=== PATIENT | male | born 1955 | race Caucasian/White ===

== ENCOUNTER 2019-05-30 09:31 | Day surgery (SDC) | payer MEDICARE, BC ==
[~2019-05-30] VITALS: Ht 177.8 cm; Wt 97.8 kg
[2019-05-30] MEDS ORDERED: LISINOPRIL/HCTZ PO (10:25)
[2019-05-30] MEDS ORDERED: Terazosin HCl10 MG PO (10:25)
[2019-05-30] MEDS ORDERED: Aspirin EC81 MG PO (10:26)
[2019-05-30] MEDS ORDERED: Lipitor20 MG PO (10:26)
[2019-05-30] MEDS ORDERED: DICL75ER PO (10:26)
== END 2019-05-30 13:09 | disposition home or self-care (01) ==
LOC: ORSCSDS 09:31
PROVIDERS: Podiatrist Foot & Ankle Surgery
PROC: 0L8P0ZZ Division of Left Lower Leg Tendon, Open Approach (ICD-10-PCS; principal; 2019-05-30 11:15)
PROC: 0QBM0ZZ Excision of Left Tarsal, Open Approach (ICD-10-PCS; principal; 2019-05-30 11:15)
DX: M24.572 Contracture, left ankle (principal); M65.269 Calcific tendinitis, unspecified lower leg; I10 Essential (primary) hypertension; Z87.891 Personal history of nicotine dependence; G62.9 Polyneuropathy, unspecified; Z79.899 Other long term (current) drug therapy; Z79.82 Long term (current) use of aspirin
CPT/HCPCS: C1713; J0690; J2250; J2704; J2710; J3010; J7120

== ENCOUNTER 2019-05-30 14:07 | Emergency (ER) | payer MEDICARE, BC ==
[~2019-05-30] VITALS: Ht 177.8 cm; Wt 97.5 kg
[~2019-05-30 14:07] MED LIST: Aspirin EC81 MG PO; DICL75ER PO; LISINOPRIL/HCTZ PO; Lipitor20 MG PO; Terazosin HCl10 MG PO
[2019-05-30 14:38] LABS: BASOPHILS ABSOLUTE AUTO 0.02 K/mm3 (0.00-0.23); BASOPHILS PERCENT AUTO 0 % (0-2); EOSINOPHILS ABSOLUTE AUTO 0.05 K/mm3 (0.00-0.68); EOSINOPHILS PERCENT AUTO 1 % (0-6); Hematocrit 43.1 % (37.0-53.0); Hemoglobin 14.7 g/dL (13.5-17.5); IMMATURE GRAN ABSOLUTE AUTO 0.05 K/mm3 (0.00-0.10); IMMATURE GRAN PERCENT AUTO 1 % (0-1); LYMPHOCYTES ABSOLUTE AUTO 0.74 K/mm3 (0.84-5.20); LYMPHOCYTES PERCENT AUTO 14 % (21-46); MONOCYTES ABSOLUTE AUTO 0.15 K/mm3 (0.16-1.47); MONOCYTES PERCENT AUTO 3 % (4-13); Mean Corpuscular HGB Conc 34.1 g/dL (31.5-36.5); Mean Corpuscular Volume 94 fL (80-100); Mean Platelet Volume 9.7 fL (9.1-12.4); NEUTROPHILS ABSOLUTE AUTO 4.23 K/mm3 (1.96-9.15); NEUTROPHILS PERCENT AUTO 81 % (41-73); Platelet Count 202 K/mm3 (150-400); RDW Coefficient Variation 13.2 % (11.7-14.2); RDW Standard Deviation 45.2 fL (35.1-46.3); White Blood Cell Count 5.24 K/mm3 (4.00-11.30)
[2019-05-30 14:56] LABS: International Normalized Ratio 0.95; Prothrombin Time Results 10.1 Sec (9.7-11.5)
[2019-05-30 15:03] LABS: Ethanol (Alcohol), Blood, Med <3 mg/dL
[2019-05-30 15:04] LABS: Alanine Aminotransfer (ALT/SGP 42 U/L (12-78); Albumin/Globulin Ratio 1.2 (0.8-1.8); Alk Phos 68 U/L (50-136); Anion Gap 7 mmol/L (6-16); Aspartate Aminotrans (AST/SGOT 21 U/L (12-37); Bilirubin, Total 0.9 mg/dL (0.1-1.0); Blood Urea Nitrogen 20 mg/dL (8-24); CO2, Blood 24 mmol/L (21-32); Calcium, Blood 8.6 mg/dL (8.5-10.1); Chloride, Blood 107 mmol/L (98-108); Globulin, Blood 3.3 g/dL (2.2-4.0); Glucose, Blood 118 mg/dL (70-99); Sodium, Blood 138 mmol/L (136-145); Total Protein, Blood 7.3 g/dL (6.4-8.2)
[2019-05-30 16:13] LABS: Bun/Creatinine Ratio 26.7 (12.0-20.0); Creatinine, Blood 0.75 mg/dL (0.60-1.20); Glomerular Filtration Rate >60 (60-)
== END 2019-05-30 16:20 | disposition short-term general hospital (02) ==
LOC: ER 14:07
PROVIDERS: Emergency Medicine
DX: S06.0X0A Concussion without loss of consciousness, initial encounter (principal); S02.19XA Other fracture of base of skull, initial encounter for closed fracture; S02.119A Unspecified fracture of occiput, initial encounter for closed fracture; W01.198A Fall on same level from slipping, tripping and stumbling with subsequent striking against other object, initial encounter; Z88.0 Allergy status to penicillin; Z88.5 Allergy status to narcotic agent; Z79.899 Other long term (current) drug therapy; Z79.82 Long term (current) use of aspirin; I10 Essential (primary) hypertension; Z87.891 Personal history of nicotine dependence
CPT/HCPCS: 36415; 51702; 70450; 71045; 72125; 80053; 84484; 85025; 85610; 93005; 93010; 96374-59; 96375-59; 96376-59; 99285-25; G0480; J1170; J2405

== ENCOUNTER 2020-02-02 13:57 | Inpatient (IN) | payer MEDICARE, BC ==
[~2020-02-02] VITALS: Ht 177.8 cm; Wt 99.8 kg
--- NOTE | 2020-02-02 14:15 | NUR ---
DIRECT ADMIT TO FLOOR. PT DENIES PAIN AT THIS TIME. AMBULATES INDEPENDENTLY TO BED. DR ROBIN NOTIFIED OF PTS ARRIVAL TO UNIT
[2020-02-02 15:01] LABS: BASOPHILS ABSOLUTE AUTO 0.02 K/mm3 (0.00-0.23); BASOPHILS PERCENT AUTO 0 % (0-2); EOSINOPHILS ABSOLUTE AUTO 0.05 K/mm3 (0.00-0.68); EOSINOPHILS PERCENT AUTO 0 % (0-6); Hematocrit 39.8 % (37.0-53.0); Hemoglobin 13.3 g/dL (13.5-17.5); IMMATURE GRAN ABSOLUTE AUTO 0.09 K/mm3 (0.00-0.10); IMMATURE GRAN PERCENT AUTO 1 % (0-1); LYMPHOCYTES ABSOLUTE AUTO 0.92 K/mm3 (0.84-5.20); LYMPHOCYTES PERCENT AUTO 6 % (21-46); MONOCYTES ABSOLUTE AUTO 0.54 K/mm3 (0.16-1.47); MONOCYTES PERCENT AUTO 4 % (4-13); Mean Corpuscular HGB 30.8 pg (26.0-34.0); Mean Corpuscular HGB Conc 33.4 g/dL (31.5-36.5); Mean Corpuscular Volume 92 fL (80-100); Mean Platelet Volume 9.2 fL (9.1-12.4); NEUTROPHILS ABSOLUTE AUTO 12.94 K/mm3 (1.96-9.15); NEUTROPHILS PERCENT AUTO 89 % (41-73); Platelet Count 231 K/mm3 (150-400); RDW Coefficient Variation 13.9 % (11.7-14.2); RDW Standard Deviation 47.4 fL (35.1-46.3); Red Blood Cell Count 4.32 M/mm3 (4.30-5.90); White Blood Cell Count 14.56 K/mm3 (4.00-11.30)
[2020-02-02 15:14] LABS: Alanine Aminotransfer (ALT/SGP 31 U/L (12-78); Albumin, Blood 3.6 g/dL (3.4-5.0); Albumin/Globulin Ratio 1.1 (0.8-1.8); Alk Phos 64 U/L (50-136); Anion Gap 9 mmol/L (6-16); Aspartate Aminotrans (AST/SGOT 16 U/L (12-37); Bilirubin, Total 2.4 mg/dL (0.1-1.0); Blood Urea Nitrogen 22 mg/dL (8-24); Bun/Creatinine Ratio 27.6 (12.0-20.0); CO2, Blood 24 mmol/L (21-32); Calcium, Blood 8.3 mg/dL (8.5-10.1); Chloride, Blood 104 mmol/L (98-108); Globulin, Blood 3.2 g/dL (2.2-4.0); Glomerular Filtration Rate >60 (60-); Glucose, Blood 97 mg/dL (70-99); Potassium, Blood 3.6 mmol/L (3.5-5.5); Sodium, Blood 137 mmol/L (136-145); Total Protein, Blood 6.8 g/dL (6.4-8.2)
--- NOTE | 2020-02-03 04:37 | NUR ---
SHIFT SUMMARY: PT NPO THROUGHOUT SHIFT. FLUIDS AND ABX INFUSING PER EMAR. DENIES N/V. PT C/O PAIN IN LOWER ABD ONCE RATING IT 10/10 ON PAIN SCALE. MEDICATED WITH 25MCG OF FENTANYL WHICH WAS EFFECTIVE. PT INDEPENDENT IN ROOM. AMBULATED ONCE IN HALLWAY. VOIDING WELL. VS WNL.
[2020-02-03 04:45] LABS: BASOPHILS ABSOLUTE AUTO 0.02 K/mm3 (0.00-0.23); BASOPHILS PERCENT AUTO 0 % (0-2); EOSINOPHILS ABSOLUTE AUTO 0.14 K/mm3 (0.00-0.68); EOSINOPHILS PERCENT AUTO 2 % (0-6); Hematocrit 39.3 % (37.0-53.0); Hemoglobin 12.8 g/dL (13.5-17.5); IMMATURE GRAN ABSOLUTE AUTO 0.04 K/mm3 (0.00-0.10); IMMATURE GRAN PERCENT AUTO 0 % (0-1); LYMPHOCYTES ABSOLUTE AUTO 0.68 K/mm3 (0.84-5.20); LYMPHOCYTES PERCENT AUTO 7 % (21-46); MONOCYTES ABSOLUTE AUTO 0.32 K/mm3 (0.16-1.47); MONOCYTES PERCENT AUTO 3 % (4-13); Mean Corpuscular HGB 30.3 pg (26.0-34.0); Mean Corpuscular HGB Conc 32.6 g/dL (31.5-36.5); Mean Corpuscular Volume 93 fL (80-100); Mean Platelet Volume 9.4 fL (9.1-12.4); NEUTROPHILS ABSOLUTE AUTO 8.43 K/mm3 (1.96-9.15); NEUTROPHILS PERCENT AUTO 88 % (41-73); Platelet Count 215 K/mm3 (150-400); RDW Coefficient Variation 14.1 % (11.7-14.2); Red Blood Cell Count 4.22 M/mm3 (4.30-5.90); White Blood Cell Count 9.63 K/mm3 (4.00-11.30)
[2020-02-03 05:06] LABS: Anion Gap 7 mmol/L (6-16); Blood Urea Nitrogen 16 mg/dL (8-24); Bun/Creatinine Ratio 18.9 (12.0-20.0); CO2, Blood 26 mmol/L (21-32); Calcium, Blood 8.2 mg/dL (8.5-10.1); Chloride, Blood 106 mmol/L (98-108); Creatinine, Blood 0.85 mg/dL (0.60-1.20); Glomerular Filtration Rate >60 (60-); Glucose, Blood 128 mg/dL (70-99); Potassium, Blood 3.8 mmol/L (3.5-5.5); Sodium, Blood 139 mmol/L (136-145)
--- NOTE | 2020-02-03 19:48 | NUR ---
SHIFT SUMMARY PT HAS DONE WELL TODAY. TRAMADOL HELPED SIGNIFICANTLY WITH LOWER ABD PAIN. NO GAS OR BMS.
--- NOTE | 2020-02-04 06:48 | NUR ---
SHIFT SUMMARY PT A/OX4 WITH VSS AND IS IND IN ROOM. PT REPORTS "FEELING BETTER TONIGHT." IS TOLERATING CL, DENIES N/V OR PAIN. DENIED NEED FOR PAIN MEDICATION T/O SHIFT. REFUSED ANTICOAGULATION MEDICATION, DESPITE EDUCATION. ABLE TO VERBALIZE RISKS AND UNDERSTANDING OF EDUCATION. ABX AND IVF INFUSED PER ORDERS. APPEARS TO HAVE SLEPT T/O MOST OF SHIFT. IS CURRENTLY RESTING IN BED WITH CALL LIGHT IN REACH. WILL CONT TO MONITOR AND GIVE REPORT TO ONCOMING RN.
[2020-02-04 10:14] LABS: BASOPHILS ABSOLUTE AUTO 0.02 K/mm3 (0.00-0.23); BASOPHILS PERCENT AUTO 0 % (0-2); EOSINOPHILS ABSOLUTE AUTO 0.16 K/mm3 (0.00-0.68); EOSINOPHILS PERCENT AUTO 2 % (0-6); Hemoglobin 13.1 g/dL (13.5-17.5); IMMATURE GRAN ABSOLUTE AUTO 0.03 K/mm3 (0.00-0.10); IMMATURE GRAN PERCENT AUTO 0 % (0-1); LYMPHOCYTES ABSOLUTE AUTO 0.67 K/mm3 (0.84-5.20); LYMPHOCYTES PERCENT AUTO 8 % (21-46); MONOCYTES ABSOLUTE AUTO 0.37 K/mm3 (0.16-1.47); MONOCYTES PERCENT AUTO 4 % (4-13); Mean Corpuscular HGB 30.9 pg (26.0-34.0); Mean Corpuscular HGB Conc 32.8 g/dL (31.5-36.5); Mean Corpuscular Volume 94 fL (80-100); NEUTROPHILS ABSOLUTE AUTO 7.34 K/mm3 (1.96-9.15); NEUTROPHILS PERCENT AUTO 86 % (41-73); Platelet Count 223 K/mm3 (150-400); RDW Coefficient Variation 13.9 % (11.7-14.2); RDW Standard Deviation 48.6 fL (35.1-46.3); Red Blood Cell Count 4.24 M/mm3 (4.30-5.90); White Blood Cell Count 8.59 K/mm3 (4.00-11.30)
--- NOTE | 2020-02-04 17:25 | NUR ---
summary PT REPORTS HEADACHE RESOLVED AFTER TYLENOL. PT REPORTS PERIODS OF SHARP CRAMPING LOWER ABD PAIN. PT HAS DECLINED PAIN MEDS. JOCELIN CLEAR LIQIDS WITHOUT NAUSEA
[2020-02-05 04:28] LABS: BASOPHILS ABSOLUTE AUTO 0.02 K/mm3 (0.00-0.23); BASOPHILS PERCENT AUTO 0 % (0-2); EOSINOPHILS PERCENT AUTO 2 % (0-6); Hematocrit 40.5 % (37.0-53.0); Hemoglobin 13.3 g/dL (13.5-17.5); IMMATURE GRAN ABSOLUTE AUTO 0.05 K/mm3 (0.00-0.10); IMMATURE GRAN PERCENT AUTO 1 % (0-1); LYMPHOCYTES ABSOLUTE AUTO 0.91 K/mm3 (0.84-5.20); LYMPHOCYTES PERCENT AUTO 10 % (21-46); MONOCYTES ABSOLUTE AUTO 0.66 K/mm3 (0.16-1.47); MONOCYTES PERCENT AUTO 8 % (4-13); Mean Corpuscular HGB 30.2 pg (26.0-34.0); Mean Corpuscular HGB Conc 32.8 g/dL (31.5-36.5); Mean Corpuscular Volume 92 fL (80-100); Mean Platelet Volume 9.2 fL (9.1-12.4); NEUTROPHILS ABSOLUTE AUTO 6.89 K/mm3 (1.96-9.15); NEUTROPHILS PERCENT AUTO 79 % (41-73); Platelet Count 257 K/mm3 (150-400); RDW Coefficient Variation 13.8 % (11.7-14.2); RDW Standard Deviation 46.7 fL (35.1-46.3); Red Blood Cell Count 4.41 M/mm3 (4.30-5.90); White Blood Cell Count 8.73 K/mm3 (4.00-11.30)
--- NOTE | 2020-02-05 04:30 | NUR ---
SHIFT SUMMARY AA0X4, VSS. PT IND IN ROOM UP FREQUENTLY TO URINATE DURING SHIFT. REPORTS PASSING GAS AND HAVING SMALL AMOUNT LOOSE STOOL. NO C/O PAIN, DENIED NEEDS DURING SHIFT. PT HAS BEEN RESTING IN BED FOR MOST OF SHIFT. TOLERATING CLEAR LIQUID DIET. ABX INFUSING DURING SHIFT.
--- NOTE | 2020-02-06 06:35 | NUR ---
PT VSS, PT CONT TO REP PAIN IN MID LOWER ABD, REP PAIN IMPROVING/LESS SEVERE. MED W/TRAMADOL W/REP RELIEF. PT JOCELIN CLEAR LIQ PO, NO N/V. PT VOIDING URINE W/O DIFFICULTY, REP SMALL LOOSE BM. IVF AND ABX CONT PER ORDERS. PT UP INDEP IN ROOM, IS USING CALL LIGHT FOR ASSISTANCE, WILL CONT TO MONITOR UNTIL REP GIVEN TO ONCOMING RN.
[2020-02-06] MEDS ORDERED: TRAM50 PO (13:27)
[2020-02-06] MEDS ORDERED: METR500 PO (13:31)
[2020-02-06] MEDS ORDERED: CIPR500 PO (13:31)
--- NOTE | 2020-02-06 15:28 | NUR ---
DC'D HOME, DC INSTRUCTIONS GIVEN, VERBALIZED UNDERSTANDING.
== END 2020-02-06 15:29 | disposition home or self-care (01) | DRG 392 ==
LOC: SURS 13:57
PROVIDERS: Internal Medicine; Surgery; ADMIT Family Medicine
DX: K57.20 Diverticulitis of large intestine with perforation and abscess without bleeding (principal); I10 Essential (primary) hypertension; E78.5 Hyperlipidemia, unspecified; M19.90 Unspecified osteoarthritis, unspecified site; N40.0 Benign prostatic hyperplasia without lower urinary tract symptoms; G25.81 Restless legs syndrome; Z87.891 Personal history of nicotine dependence; Z88.5 Allergy status to narcotic agent; Z88.0 Allergy status to penicillin; Z79.82 Long term (current) use of aspirin
CPT/HCPCS: 36415; 74018; 80048; 80053; 85025; A9270; J0744; J1644; J3010

== ENCOUNTER → 2020-02-02 | Outpatient (CLI) | payer MEDICARE, BC ==
[~2020-02-02] MED LIST changes: +CENTRUM ADULTS1 EAC1 PO; +HYDR1TAB94 PO; +Prinivil10 MG PO
[2020-02-02 12:25] LABS: Bacteria Not Seen /hpf; Mucus Light (0-Heavy); Red Blood Cells, Urine 0-2 /hpf (0-2); Squamous Epithelial Cells Rare /hpf (Few)
== END | disposition home or self-care (01) ==
LOC: LAB SHORT 11:35 → LAB EV 11:35
PROVIDERS: Physician Assistant
DX: R30.9 Painful micturition, unspecified (principal)
CPT/HCPCS: 81015

== ENCOUNTER 2020-08-30 09:30 | Day surgery (SDC) | payer MEDICARE, BC ==
[~2020-08-30] VITALS: Ht 172.7 cm; Wt 99.6 kg
[~2020-08-30 09:30] MED LIST changes: +ASPI81CH PO; +CIPR500 PO; +DICLOFENAC35 MG PO; +GABA300 PO; +Lisinopril-Hct1 EAC4 PO; +METR500 PO; +TRAM50 PO
--- NOTE | 2020-08-30 10:26 | NUR ---
Ambulatory in Day Surgery History, Chart, Medications and Allergies reviewed before start of procedure.Patient confirms NPO status and agrees with scheduled surgery. Patient reports completing Chlorhexadine shower X5 DAYS AND 5 DAYS OF NASAL OINTMENT prior to admission to hospital.Lungs clear T/O to Auscultation.
--- NOTE | 2020-08-30 10:28 | NUR ---
OXYCONTIN ORDER ON DR. CORCORAN PRE OP ORDER SHEET HELD DUE TO PT REFUSAL FOR ALLERGY/ HX OF ITCHING/BURNING FEELING THROUGHOUT BODY. DR. CORCORAN NOTIFIED
--- NOTE | 2020-08-30 18:02 | NUR ---
SHIFT SUMMARY R TAMERA POD0, A/O X4, VSS, ARRIVED TO UNIT @ 1558, TOLERATING PO, NO POST OP VOID AT THIS TIME, PAIN WELL MANAGED (SEE EMAR), DRESSING CDI, POLAR PACK IN PLACE, ORIENTED TO ROOM/CALL LIGHT. CALL LIGHT IN REACH, WILL CONTINUE TO MONITOR AND REPORT TO ONCOMING NOC RN.
[2020-08-31 03:50] LABS: BASOPHILS ABSOLUTE AUTO 0.01 K/mm3 (0.00-0.23); BASOPHILS PERCENT AUTO 0 % (0-2); EOSINOPHILS PERCENT AUTO 0 % (0-6); Hematocrit 37.1 % (37.0-53.0); Hemoglobin 12.2 g/dL (13.5-17.5); IMMATURE GRAN ABSOLUTE AUTO 0.06 K/mm3 (0.00-0.10); IMMATURE GRAN PERCENT AUTO 1 % (0-1); LYMPHOCYTES ABSOLUTE AUTO 0.57 K/mm3 (0.84-5.20); LYMPHOCYTES PERCENT AUTO 4 % (21-46); MONOCYTES ABSOLUTE AUTO 0.65 K/mm3 (0.16-1.47); MONOCYTES PERCENT AUTO 5 % (4-13); Mean Corpuscular HGB 30.3 pg (26.0-34.0); Mean Corpuscular HGB Conc 32.9 g/dL (31.5-36.5); Mean Corpuscular Volume 92 fL (80-100); Mean Platelet Volume 9.5 fL (9.1-12.4); NEUTROPHILS ABSOLUTE AUTO 11.65 K/mm3 (1.96-9.15); NEUTROPHILS PERCENT AUTO 90 % (41-73); Platelet Count 193 K/mm3 (150-400); RDW Coefficient Variation 13.2 % (11.7-14.2); RDW Standard Deviation 45.6 fL (35.1-46.3); Red Blood Cell Count 4.03 M/mm3 (4.30-5.90); White Blood Cell Count 12.94 K/mm3 (4.00-11.30)
[2020-08-31 04:10] LABS: Anion Gap 5 mmol/L (6-16); Blood Urea Nitrogen 21 mg/dL (8-24); Bun/Creatinine Ratio 28.8 (12.0-20.0); CO2, Blood 26 mmol/L (21-32); Calcium, Blood 8.5 mg/dL (8.5-10.1); Chloride, Blood 108 mmol/L (98-108); Creatinine, Blood 0.73 mg/dL (0.60-1.20); Glomerular Filtration Rate >60 (60-); Glucose, Blood 118 mg/dL (70-99); Magnesium, Blood 1.9 mg/dL (1.6-2.4); Potassium, Blood 4.2 mmol/L (3.5-5.5); Sodium, Blood 139 mmol/L (136-145)
--- NOTE | 2020-08-31 04:40 | NUR ---
SHIFT SUMMARY: PT POD#1 FOR A RT TAMERA. AQUACEL DRESSING C/D/I WITH POLAR PACK IN PLACE. PAIN BEING MANAGED WITH TORADOL AND TYLENOL PER EMAR. PT RATING PAIN 1/10 ON PAIN SCALE. PT ABLE TO AMBULATE TO BATHROOM WITH ONE MINIMAL ASSIST. VOIDING. JOCELIN PO AND DENIES N/V. ABX COMPLETE. PLAN FOR PHYSICAL THERAPY TODAY AND POSSIBLE DISCHARGE HOME.
[2020-08-31] MEDS ORDERED: OXYC5 PO (11:05)
--- NOTE | 2020-08-31 11:35 | NUR ---
DISCHARGE NOTE PT AMBULATING, VOIDING, TOLERATING PO, PASSING FLATUS, PAIN WELL CONTROLLED (SEE EMAR), POST PROCEDURAL EDUCATION AND CARE DISCUSSED W/ PT AND FAMILY, PRESCRIPTIONS GIVEN TO PT, POLAR PACK AND 2 AQUACELLS GIVEN TO PATIENT, DISCUSSED FOLLOW UP APPOINTMENTS W/ PT AND ENCOURAGED TO CONFIRM W/ DR. PT DEPARTED VIA WC W/ ALL PERSONAL POSSESSIONS.
== END 2020-08-31 11:39 | disposition home or self-care (01) ==
LOC: ORSCMMR 09:30 → ORD 11:15 → ORSCMMR 11:15 → SURS 16:06 → ORSCMMR 08-31 11:39 → SURS 08-31 11:39
PROVIDERS: Orthopaedic Surgery
PROC: 0SR90JA Replacement of Right Hip Joint with Synthetic Substitute, Uncemented, Open Approach (ICD-10-PCS; principal; 2020-08-30 11:15)
DX: M16.11 Unilateral primary osteoarthritis, right hip (principal); I10 Essential (primary) hypertension; E78.5 Hyperlipidemia, unspecified; Z87.891 Personal history of nicotine dependence; Z79.899 Other long term (current) drug therapy; E66.9 Obesity, unspecified; Z68.33 Body mass index [BMI] 33.0-33.9, adult; Z79.82 Long term (current) use of aspirin
CPT/HCPCS: 36415; 72170; 80048; 83735; 85025; 88300; 97110; 97116; 97162; A9270; A9270-GY; C1776; J0171; J0690; J0735; J1100; J1885; J2250; J2370; J2405; J2704; J2795; J3010; J7120; Q0163

== ENCOUNTER 2021-09-07 09:50 | Day surgery (SDC) | payer MEDICARE, BC ==
[~2021-09-07] VITALS: Ht 172.7 cm; Wt 93.4 kg
[~2021-09-07 09:50] MED LIST changes: +OXYC5 PO
--- NOTE | 2021-09-07 11:42 | NUR ---
09/07/21 1142 Kamar Vera 1 MG EPI ADDED TO THE FIRST BAG OF LR PER ORDER FOR IRRIGATION.
--- NOTE | 2021-09-07 12:28 | NUR ---
09/07/21 1228 MARYBETH MULLINS placed on 15L FACE TENT ON ADMISSION. PT VERY SLEEPY, NOT TAKING DEEP BREATHS
== END 2021-09-07 13:20 | disposition home or self-care (01) ==
LOC: ORSCSDS 09:50
PROVIDERS: Orthopaedic Surgery
PROC: 0SBD4ZZ Excision of Left Knee Joint, Percutaneous Endoscopic Approach (ICD-10-PCS; principal; 2021-09-07 11:00)
DX: S83.242A Other tear of medial meniscus, current injury, left knee, initial encounter (principal); I10 Essential (primary) hypertension; E78.00 Pure hypercholesterolemia, unspecified; Z79.82 Long term (current) use of aspirin; Z79.899 Other long term (current) drug therapy; Z87.891 Personal history of nicotine dependence
CPT/HCPCS: J0171; J0690; J1100; J1885; J2250; J2405; J2704; J3010; J7120

== ENCOUNTER 2022-04-21 06:14 | Day surgery (SDC) | payer MEDICARE, BC ==
[~2022-04-21] VITALS: Ht 175.3 cm; Wt 95.3 kg
[2022-04-21] MEDS ORDERED: LOSA25 (06:48)
--- NOTE | 2022-04-21 07:17 | NUR ---
04/21/22 0717 HUMERA SHIRLEY 0.25MG EPI (1MG/1ML) ADDED TO 50MLS OF BUPIVACAINE 0.5% TO CREATE A LOCAL SOLUTION OF BUPIVACAINE 0.5% WITH EPI 1:200,000
== END 2022-04-21 10:35 | disposition home or self-care (01) ==
LOC: ORSCSDS 06:14
PROVIDERS: Podiatrist Foot & Ankle Surgery
PROC: 0LQS0ZZ Repair Right Ankle Tendon, Open Approach (ICD-10-PCS; principal; 2022-04-21 07:30)
DX: S86.211A Strain of muscle(s) and tendon(s) of anterior muscle group at lower leg level, right leg, initial encounter (principal); I10 Essential (primary) hypertension; Z87.891 Personal history of nicotine dependence; E78.00 Pure hypercholesterolemia, unspecified; Z79.899 Other long term (current) drug therapy; Z79.82 Long term (current) use of aspirin
CPT/HCPCS: A9270; C1713; J0171; J1100; J1885; J2250; J2405; J2704; J3010; J3370; J7060; J7120

== ENCOUNTER 2024-07-05 08:43 | Emergency (ER) | payer MEDICARE, BC ==
[~2024-07-05] VITALS: Ht 172.7 cm; Wt 95.7 kg
[~2024-07-05 08:43] MED LIST changes: +LOSA25
[2024-07-05] MEDS ORDERED: NS 1,000 ML IV SCH (08:55)
[2024-07-05 09:02] LABS: BASOPHILS ABSOLUTE AUTO 0.02 K/mm3 (0.00-0.23); BASOPHILS PERCENT AUTO 0 % (0-2); EOSINOPHILS ABSOLUTE AUTO 0.05 K/mm3 (0.00-0.68); EOSINOPHILS PERCENT AUTO 1 % (0-6); Hematocrit 36.9 % (37.0-53.0); Hemoglobin 12.8 g/dL (13.5-17.5); IMMATURE GRAN ABSOLUTE AUTO 0.04 K/mm3 (0.00-0.10); IMMATURE GRAN PERCENT AUTO 1 % (0-1); LYMPHOCYTES ABSOLUTE AUTO 0.27 K/mm3 (0.84-5.20); LYMPHOCYTES PERCENT AUTO 5 % (21-46); MONOCYTES ABSOLUTE AUTO 0.05 K/mm3 (0.16-1.47); MONOCYTES PERCENT AUTO 1 % (4-13); Mean Corpuscular HGB 30.8 pg (26.0-34.0); Mean Corpuscular HGB Conc 34.7 g/dL (31.5-36.5); Mean Corpuscular Volume 89 fL (80-100); Mean Platelet Volume 9.4 fL (9.1-12.4); NEUTROPHILS ABSOLUTE AUTO 5.09 K/mm3 (1.96-9.15); NEUTROPHILS PERCENT AUTO 92 % (41-73); Platelet Count 186 K/mm3 (150-400); RDW Standard Deviation 45.3 fL (35.1-46.3); Red Blood Cell Count 4.16 M/mm3 (4.30-5.90); White Blood Cell Count 5.52 K/mm3 (4.00-11.30)
[2024-07-05 09:21] LABS: BAND PERCENT MAN 10 % (0-8); BASOPHILS PERCENT MAN 0 % (0-2); EOSINOPHILS ABSOLUTE MAN 0.05 K/mm3 (0.00-0.68); EOSINOPHILS PERCENT MAN 1 % (0-6); LYMPHOCYTES % ATYPICAL MANUAL 1 % (0-0); LYMPHOCYTES ABSOLUTE MAN 0.33 K/mm3 (0.84-5.20); LYMPHOCYTES PERCENT MAN 5 % (21-46); METAMYELOCYTE ABSOLUTE MAN 0.05 K/mm3 (0.00-0.00); METAMYELOCYTE PERCENT MAN 1 % (0-0); MONOCYTES PERCENT MAN 0 % (4-13); NEUTROPHILS ABSOLUTE MAN 5.07 K/mm3 (1.96-9.15); SEG NEUTROPHILS PERCENT MAN 82 % (41-73); TOTAL CELLS COUNTED 100
[2024-07-05 09:28] LABS: Albumin, Blood 3.3 g/dL (3.4-5.0); Bilirubin, Total 2.2 mg/dL (0.1-1.0); Bun/Creatinine Ratio 25.3 (12.0-20.0); Calcium, Blood 8.1 mg/dL (8.5-10.1); Creatinine, Blood 0.83 mg/dL (0.60-1.20); Globulin, Blood 3.4 g/dL (2.2-4.0); Magnesium, Blood 1.4 mg/dL (1.6-2.4); Phosphorus, Blood 1.4 mg/dL (2.5-4.9); Potassium, Blood 3.4 mmol/L (3.5-5.5); Total Protein, Blood 6.7 g/dL (6.4-8.2)
[2024-07-05 09:47] LABS: Influenza A, PCR NEGATIVE (NEGATIVE); Influenza B, PCR NEGATIVE (NEGATIVE); Resp Syncytial Virus, PCR NEGATIVE (NEGATIVE); SARS-Cov-2 (COVID-19) PCR, MMC NEGATIVE (NEGATIVE)
[2024-07-05] MEDS ORDERED: Potassium Chloride 20 MEQ TabCR PO ONE (10:30)
[2024-07-05] MEDS ORDERED: Mag Sulfate 1 GM/D5% 100ML 100 ML IV ONE (10:30)
[2024-07-05] MEDS ORDERED: CIPR500 PO (12:18)
[2024-07-05] MEDS ORDERED: METR500 PO (12:18)
[2024-07-05] MEDS ORDERED: ONDA4ODT MM (12:18)
[2024-07-05 12:30] VITALS: BP 107/69
== END 2024-07-05 12:50 | disposition home or self-care (01) ==
LOC: ER 08:43
PROVIDERS: Emergency Medicine
DX: K52.9 Noninfective gastroenteritis and colitis, unspecified (principal); E86.0 Dehydration; E87.6 Hypokalemia; E83.42 Hypomagnesemia; Z88.0 Allergy status to penicillin; Z88.5 Allergy status to narcotic agent; Z79.899 Other long term (current) drug therapy; Z79.82 Long term (current) use of aspirin; I10 Essential (primary) hypertension; E78.5 Hyperlipidemia, unspecified; M19.90 Unspecified osteoarthritis, unspecified site; Z87.891 Personal history of nicotine dependence
CPT/HCPCS: 0241U; 74177; 76705; 80053; 83735; 84100; 84484; 85025; 93005; 93010; 96361; 96374-59; 99285-25; A9270; J3475; J7030; Q9967

== ENCOUNTER → 2024-07-10 | Outpatient (CLI) | payer MEDICARE, BC ==
[~2024-07-10] MED LIST changes: +ONDA4ODT MM
[2024-07-10 17:15] LABS: Adenovirus F 40/41 Not Detected (NOT DETECT); Astrovirus Not Detected (NOT DETECT); Campylobacter Sp Not Detected (NOT DETECT); Cryptosporidium Not Detected (NOT DETECT); Cyclospora Cayetanensis Not Detected (NOT DETECT); E. Coli O157 Not Detected (NOT DETECT); Entamoeba Histolytica Not Detected (NOT DETECT); Enteroaggregative E. coli-EAEC Not Detected (NOT DETECT); Enteropathogenic E. coli-EPEC Not Detected (NOT DETECT); Enterotoxigenic E. coli-ETEC Not Detected (NOT DETECT); Giardia Lamblia Not Detected (NOT DETECT); Norovirus GI/GII Not Detected (NOT DETECT); Plesiomonas Shigelloides Not Detected (NOT DETECT); Rotavirus A Not Detected (NOT DETECT); Salmonella Sp Not Detected (NOT DETECT); Sapovirus Not Detected (NOT DETECT); Shiga Toxin-prod E. coli-STEC Not Detected (NOT DETECT); Shigella/Enteroin E. coli-EIEC Not Detected (NOT DETECT); Vibrio Cholerae Not Detected (NOT DETECT); Vibrio Sp Not Detected (NOT DETECT); Yersinia Enterocolitica Not Detected (NOT DETECT)
== END ==
LOC: LAB 08:45 → LAB SHORT 08:45
PROVIDERS: Family Medicine
DX: A06.1 Chronic intestinal amebiasis (principal)
CPT/HCPCS: 87507

== ENCOUNTER → 2024-07-31 | Outpatient (CLI) | payer MEDICARE, BC | LOC: LAB 15:01 → LAB SHORT 15:01 | DX: R50.9 Fever, unspecified (principal) | CPT/HCPCS: 87086 ==

== ENCOUNTER 2024-10-15 06:35 | Day surgery (SDC) | payer MEDICARE, BC ==
[2024-10-15] VITALS (14 sets, daily range): BP systolic 117–168; BP diastolic 74–106
[~2024-10-15] VITALS: Ht 175.3 cm; Wt 96.5 kg
[~2024-10-15 06:35] MED LIST changes: +HYDROCHLOROTH12.5 MG PO; +Lactated Ringer's 1,000 ML IV ONE; +Lactated Ringer's 1,000 ML IV SCH
[2024-10-15] MEDS ORDERED: propofoL 20 ML IV ONE (06:55)
--- NOTE | 2024-10-15 07:27 | NUR ---
10/15/24 0727 Bela Fishman CONFIRMED AND REVIEWED H&P, MEDCICATIONS, ALLERGIES, MEDICAL HISTORY, RESPIRATORY HISTORY, VITAL SIGNS, 3-LEAD EKG, CONSENTS, AND PHYSICIAN ORDERS. PATIENT CONFIRMS NPO STATUS AND AGREES WITH SCHEDULED PROCEDURE. MONITOR INTACT WITH CONTINUOUS PULSE OXIMETRY, CAPNOGRAPHY, 3-LEAD EKG, INTERMITTENT BP. SUPPLEMENTAL O2 TO BE TITRATED THROUGHOUT PROCEDURE TO MAINTAIN O2 SATURATION ABOVE 90%. PATIENT DETERMINED TO BE ASA APPROPRIATE FOR PROPOFOL SEDATION PRIOR TO START OF PROCEDURE BY DR. POTTER
--- NOTE | 2024-10-15 07:57 | NUR ---
REPORT RECEIVED FROM HEIDI GREEN. VSS. PT ON RA. PT A&OX4. PT ABLE TO REPOSITION SELF IN BED. PT REQUESTING PO FLUIDS AND TOLERATING THEM WELL. PT DENIES PAIN, NAUSEA OR OTHER DISCOMFORTS.
== END 2024-10-15 08:15 | disposition home or self-care (01) ==
LOC: ORSCMMR 06:35 → ORD 07:30 → ORSCMMR 07:30
PROVIDERS: Internal Medicine Gastroenterology
PROC: 0DJD8ZZ Inspection of Lower Intestinal Tract, Via Natural or Artificial Opening Endoscopic (ICD-10-PCS; principal; 2024-10-15 07:30)
DX: K62.5 Hemorrhage of anus and rectum (principal); K57.30 Diverticulosis of large intestine without perforation or abscess without bleeding; K64.8 Other hemorrhoids; M62.89 Other specified disorders of muscle; I10 Essential (primary) hypertension; E78.00 Pure hypercholesterolemia, unspecified; Z79.82 Long term (current) use of aspirin; Z79.899 Other long term (current) drug therapy
CPT/HCPCS: J2704; J7120

== ENCOUNTER 2025-06-08 07:15 | Day surgery (SDC) | payer MEDICARE, BC ==
[~2025-06-08] VITALS: Ht 172.7 cm; Wt 101.0 kg
[~2025-06-08 07:15] MED LIST changes: -Lactated Ringer's 1,000 ML IV ONE; -Lactated Ringer's 1,000 ML IV SCH; +Lidocaine 1%-Epineph 1:100000 20 ML MDV ONE; +NS 500 ML IV ONE; +Sodium Bicarb 8.4% 1 MEQ/ML 50 ML Vial ONE
[2025-06-08] MEDS ORDERED: CeFAZolin Sodium 2,000 MG VIAL ONE (07:44)
[2025-06-08] MEDS ORDERED: QUIN300 PO (07:59)
[2025-06-08] MEDS ORDERED: NS 500 ML IV ONE (08:12)
[2025-06-08] MEDS ORDERED: Glycopyrrolate 0.2 MG/ML 5ML VIAL ONE (08:16)
[2025-06-08] MEDS ORDERED: Ondansetron HCl 2 MG / ML 2ML Vial ONE (08:16)
[2025-06-08] MEDS ORDERED: FentaNYL Citrate 50 MCG/ML 2 ML Injection ONE (08:16)
[2025-06-08] MEDS ORDERED: Dexamethasone Sod Phos 10 MG/ML 1ML VIAL ONE (08:16)
[2025-06-08 08:59] VITALS: BP 170/68
--- NOTE | 2025-06-08 09:12 | NUR ---
06/08/25 0912 MARYBETH MULLINS REPORT GIVEN TO PETER DERAS
== END 2025-06-08 09:28 | disposition home or self-care (01) ==
LOC: ORSCSDS 07:15
PROVIDERS: Orthopaedic Surgery
PROC: 0JBG0ZX Excision of Right Lower Arm Subcutaneous Tissue and Fascia, Open Approach, Diagnostic (ICD-10-PCS; principal; 2025-06-08 08:30)
PROC: 01N54ZZ Release Median Nerve, Percutaneous Endoscopic Approach (ICD-10-PCS; principal; 2025-06-08 08:30)
DX: G56.03 Carpal tunnel syndrome, bilateral upper limbs (principal); I10 Essential (primary) hypertension; E78.00 Pure hypercholesterolemia, unspecified; Z87.891 Personal history of nicotine dependence; Z79.82 Long term (current) use of aspirin; Z79.899 Other long term (current) drug therapy
CPT/HCPCS: 88304; 88313; J0690; J1100; J2405; J2704; J3010; J7040